=== PATIENT | female | born 1945 | race Caucasian/White ===

== ENCOUNTER 2018-09-28 06:47 | Day surgery (SDC) | payer MEDICARE, OTHER ==
[2018-09-28] MEDS ORDERED: Sodium Chloride 0.9% 10 ML Syringe FLUSH PRN (07:00)
[2018-09-28] MEDS ORDERED: Lactated Ringers 1,000 ML IV SCH (07:00)
[2018-09-28] MEDS ORDERED: Propofol 200 MG/20 ML SDV ONE (08:02)
[2018-09-28] MEDS ORDERED: fentaNYL 100 MCG/2 ML SDV ONE (08:02)
[2018-09-28 08:50] VITALS: BP 94/67
--- NOTE | 2018-09-28 08:59 | OR ---
PREOPERATIVE DIAGNOSIS: History of polyps. POSTOPERATIVE DIAGNOSIS: Mild sigmoid diverticulosis, otherwise normal exam. PROCEDURE PROPOSED/PROCEDURE DONE: Total flexible colonoscopy. INDICATION: This is a 73-year-old female who has a history of polyps. She was last examined about 3 years ago and had a flattish type polyp and recommended to have a short-term followup. She denies any symptomatology. TECHNIQUE: The patient was brought to the endoscopy suite and placed in left lateral decubitus position. She was sedated per SUSP[employer] CORD [employer] with propofol. The flexible video colonoscope was then passed transanally and under visualization advanced to the cecum. Examination revealed normal ascending, transverse, descending colon. The sigmoid colon revealed some mild diverticulosis and the rectum was normal. There was no evidence of any polyps, colitis, or other abnormalities. The scope was then withdrawn. She tolerated the procedure well. FINAL IMPRESSION: 1. Mild sigmoid diverticulosis. 2. History of previous polyps. PLAN: I feel she should have 1 more examination in 5 years time and that likely would be her last one. SCM: 09/28/2018 08:30:20 MODL: 09/28/2018 08:46:42 /[id number]
== END 2018-09-28 10:25 | disposition home or self-care (01) ==
LOC: VM.SDS 06:47
PROVIDERS: ATTEND Surgery
DX: Z12.11 Encounter for screening for malignant neoplasm of colon (principal); K57.30 Diverticulosis of large intestine without perforation or abscess without bleeding; I10 Essential (primary) hypertension; Z86.010 Personal history of colon polyps; Z79.899 Other long term (current) drug therapy
CPT/HCPCS: 00812; G0105; J2704; J3010

== ENCOUNTER 2020-08-10 07:47 | Day surgery (SDC) | payer MEDICARE, OTHER ==
[~2020-08-10 07:47] MED LIST: Lactated Ringers 1,000 ML IV SCH; Sodium Chloride 0.9% 10 ML Syringe FLUSH PRN
[2020-08-10] MEDS: Lactated Ringers 1,000 ML IV SCH (08:29)
[2020-08-10] MEDS ORDERED: Propofol 200 MG/20 ML SDV ONE (09:07)
[2020-08-10] MEDS ORDERED: fentaNYL 100 MCG/2 ML SDV ONE (09:07)
[2020-08-10] MEDS ORDERED: Midazolam 1 MG/ML 2 ML SDV ONE (09:07)
[2020-08-10 09:54] VITALS: BP 129/57; PULSE 71
--- NOTE | 2020-08-10 13:12 | OR ---
DATE OF SURGERY: 08/10/2020. REFERRING PROVIDER: Dr. Charo Sifuentes. PRE-OPERATIVE DIAGNOSIS: History of colon polyps. There was some confusion as to when her last colonoscopy was. The Epic H and P states last colon was 2016 and 3-year followup was recommended. However, there is no record of this at [facility]. There is a previous colonoscopy with Dr. Hernandez from 09/2018, which showed some mild diverticulosis but was otherwise normal. There is no family history of colon cancer. POST-OPERATIVE DIAGNOSES: 1. Mild diverticulosis, but otherwise normal. 2. Normal-appearing distal ileum. PROCEDURE: Colonoscopy. SURGEON: Kal Fernandez M.D. ANESTHESIA: Monitored anesthesia care. BOWEL PREP: Good. Gabby is a 75-year-old female who was brought to the endoscopy suite after discussing risks and benefits of the procedure. Informed consent was obtained for conscious sedation and colonoscopy with or without biopsy and/or polypectomy. We also discussed possibility of missed lesions. Pre-procedure exam was unremarkable. IV, oxygen, and monitors were placed. The patient was placed in the left lateral decubitus position. Sedation was administered and a digital rectal exam was performed and unremarkable. Colonoscope was passed into the rectum and slowly advanced all the way to the cecum. Cecum was viewed and photographed. Ileocecal valve was intubated and distal ileum was normal in appearance. The colonoscope was slowly withdrawn and the mucosa was closed observed in a direct circumferential manner. The ascending colon was unremarkable. The transverse colon was unremarkable. The descending colon was unremarkable. The sigmoid colon revealed mild diverticulosis. Retroflexion was performed and rectal mucosa was unremarkable. Scope was removed. The patient tolerated the procedure well. The patient was monitored until that baseline status. Discharge instructions were reviewed and the patient was discharged in good condition. COMPLICATIONS: None. TOTAL TIME: 24 minutes. ESTIMATED BLOOD LOSS: None. RECOMMENDATIONS/FOLLOW-UP: The patient should be good for 5 years on colon cancer screening. I would like to kindly thank Dr. Sifuentes for this referral. DMB: 08/10/2020 11:31:20 MODL: 08/10/2020 12:36:21 /[id number]
== END 2020-08-10 10:25 | disposition home or self-care (01) ==
LOC: VM.SDS 07:47
PROVIDERS: ATTEND Family Medicine
DX: Z12.11 Encounter for screening for malignant neoplasm of colon (principal); Z86.010 Personal history of colon polyps; K57.30 Diverticulosis of large intestine without perforation or abscess without bleeding; E03.9 Hypothyroidism, unspecified; D69.6 Thrombocytopenia, unspecified; I12.9 Hypertensive chronic kidney disease with stage 1 through stage 4 chronic kidney disease, or unspecified chronic kidney disease; N18.31 Chronic kidney disease, stage 3a; R07.81 Pleurodynia; E78.5 Hyperlipidemia, unspecified; Z90.89 Acquired absence of other organs; Z98.890 Other specified postprocedural states; Z79.899 Other long term (current) drug therapy; Z88.5 Allergy status to narcotic agent
CPT/HCPCS: 00811; J2250; J2704; J3010; J7120